=== PATIENT | female | born 1955 | race Caucasian/White ===

== ENCOUNTER → 2021-01-09 | Outpatient (CLI) | payer OTHER ==
[~2021-01-09] MED LIST: ALBUTEROL1.25 MG/3 INH; ALPRAZOLAM0.5 MG PO; BREO ELLIPTA 21 EACH INH; DEXILANT30 MG PO; IBUPROFEN600 MG PO; NORCO 5-325 TA1 EACH PO; PRAVASTATIN SOD20 MG PO; PROAIR DIGIHAL90 MCG INH; ZOLOFT100 MG PO
== END ==
LOC: US 08:27
DX: R10.84 Generalized abdominal pain (principal); R14.0 Abdominal distension (gaseous); R13.10 Dysphagia, unspecified
CPT/HCPCS: 76536; 76705

== ENCOUNTER → 2021-01-13 | Outpatient (CLI) | payer OTHER | LOC: HEART 5 13:42 | DX: R06.02 Shortness of breath (principal) | CPT/HCPCS: 94060; 94729 ==

== ENCOUNTER → 2021-02-26 | Outpatient (CLI) | payer MEDICARE | LOC: EXRD 13:04 | DX: J44.9 Chronic obstructive pulmonary disease, unspecified (principal) | CPT/HCPCS: 71046 ==

== ENCOUNTER → 2021-03-20 | Outpatient (CLI) | payer MEDICARE | LOC: KOH-I 08:35 | DX: Z87.891 Personal history of nicotine dependence (principal); J44.9 Chronic obstructive pulmonary disease, unspecified | CPT/HCPCS: 71271 ==

== ENCOUNTER → 2021-05-04 | Outpatient (CLI) | payer MEDICARE | LOC: RAD 04-30 09:30 | DX: R13.10 Dysphagia, unspecified (principal); K44.9 Diaphragmatic hernia without obstruction or gangrene; K21.9 Gastro-esophageal reflux disease without esophagitis | CPT/HCPCS: 74220; 74230; 92611-GN ==

== ENCOUNTER → 2021-05-21 | Outpatient (CLI) | payer MEDICARE | LOC: HEART CORB 05-14 08:45 | DX: R07.2 Precordial pain (principal); R94.39 Abnormal result of other cardiovascular function study | CPT/HCPCS: 78452; A9502; J2785 ==

== ENCOUNTER → 2021-11-28 | Outpatient (CLI) | payer MEDICARE | LOC: SLEEP-COR 11:25 | DX: G47.33 Obstructive sleep apnea (adult) (pediatric) (principal) | CPT/HCPCS: 95810 ==